=== PATIENT | female | born 1960 | race Caucasian/White ===

== ENCOUNTER 2020-06-12 16:36 | Emergency (ER) | payer MEDICAID, SELFPAY ==
[2020-06-12 16:37] VITALS: BP 162/92; PULSE 107; RESP 18; TEMP 36.4; BMI 48.7
--- NOTE | 2020-06-12 16:57 | CT_ITS ---
STUDY: CT BRAIN WITHOUT CONTRAST REASON FOR EXAM: Female, 59 years old. Fall. Pain. RADIATION DOSAGE (If Supplied By Facility): CTDIvol = ( 44.99 ) mGy, DLP = ( 829.85 ) mGycm TECHNIQUE: Transaxial CT imaging of the brain was performed without administration of intravenous contrast material. Individualized dose optimization techniques were used for this CT. COMPARISON: None. FINDINGS: There is no acute bleed or infarct. There are normal white matter tracts. The ventricles are normal in configuration. There is no hydrocephalus. The mastoid air cells are well aerated. There is no skull fracture. CT/Brain/Head without Contrast IMPRESSION: No acute intracranial abnormality. Electronically Signed: Fabrizio Deluca, at 17:32 EDT Tel , Service support ,
--- NOTE | 2020-06-12 16:57 | CT_ITS ---
STUDY: CT FACIAL BONES WITHOUT CONTRAST REASON FOR EXAM: Female, 59 years old. FALL/HIT FACE. Nose pain and bleeding. Hx of HLD, diabetes, asthma and uterine cancer RADIATION DOSAGE (If Supplied By Facility): CTDIvol = ( 29.38 ) mGy, DLP = ( 584.19 ) mGycm TECHNIQUE: The patient was scanned in a multi detector CT scanner. Sagittal and coronal images were reconstructed. Individualized dose optimization techniques were used for this CT. COMPARISON: None. FINDINGS: Normal soft tissue structures. Normal orbital mondragon and orbital contents. There is a minimally displaced fracture of the left nasal bone. The remainder the visualized facial bones are intact. Normal visualized paranasal sinuses. CT/Sinus/Facial Bone IMPRESSION: Minimally displaced fracture of the left nasal bone. No additional facial fractures. Clear sinuses. Electronically Signed: Fabrizio Deluca, at 17:25 EDT Tel , Service support ,
--- NOTE | 2020-06-12 16:57 | ED.VIS.GEN ---
History of Present Illness Chief Complaint: Nosebleed Narrative: Patient is a 59-year-old female who presents after a mechanical fall. She was cleaning. She lost her balance and fell forward striking her face on the floor. No loss of consciousness. No headache. No vomiting. She is not anticoagulated. She had epistaxis which is since resolved. She complains of nasal pain. She also sustained wounds on the inside of the left upper lip as well as above the left lip below the nose. She is uncertain of her last tetanus immunization. Past Medical History - Allergies and Home Meds Allergies/Adverse Reactions: Allergies No Known Allergies Allergy (Verified 04/30/16 11:33) Primary Care Physician: Angeline Jose MD [NON-STAFF] - Past Medical History: - - Diabetes and depression Smoking Status: Former smoker Review of Systems All systems negative except as indicated General: Denies: Fever Eyes: Denies: Visual changes - bilaterally ENT: Denies: Bilateral ear pain Cardiovascular: Denies: Chest pain Respiratory: Denies: Dyspnea Gastrointestinal: Denies: Abdominal pain Skin: Denies: Rash Neurological: Denies: Headache Hematologic: Denies: Easy bruising Allergy: Denies: Uticaria Physical Exam Vital Signs/Narrative: Vital Signs Temp Pulse Resp BP 06/12/20 16:37 97.6 F L 107 H 18 162/92 H Inital Vital Signs reviewed: Yes General: Well nourished Head: Normocephalic, - - No nasal septal hematoma, patient does have tenderness along the nasal bones no bony crepitus or deformity no active epistaxis she does have some dried blood at the left nare Eyes: EOMI ENT: Moist mucous membranes, - - Patient's left maxillary central incisor is severely decayed. Patient has a small puncture wound on the inside of the left lip at this position where she appears to have bitten it. Patient also has a superficial 1-1/2 cm laceration of the lip of the upper lip. This is superficial and cannot pull apart and maintains good alignment it is not contiguous with the laceration on the inside of the lip this is not a through and through laceration Neck: Supple Cardiovascular: Regular rate, Regular rhythm Respiratory: No distress, CTA bilaterally Abdomen: Soft Extremities: - - Patient has tenderness and ecchymosis of the anterior right knee over the patella Skin: Normal color Neurological: Alert, Oriented x3, - - GCS of 15 with no focal or lateralizing neurological deficits Psychological: Normal affect Diagnostic/Tx/Re-eval Impressions Brain CT 06/12/20 16:57 IMPRESSION: No acute intracranial abnormality. Electronically Signed: Fabrizio Deluca, at 17:32 EDT Tel , Service support , Facial/Sinus 06/12/20 16:57 IMPRESSION: Minimally displaced fracture of the left nasal bone. No additional facial fractures. Clear sinuses. Electronically Signed: Fabrizio Deluca, at 17:25 EDT Tel , Service support , 06/12/20 16:57 CT Brain [Brain/Head without Contrast] [CT] Stat Sinus/Facial Bone [CT] Stat - Medical Decision Making Patient's tetanus immunization was updated. Skin adhesive was applied to the laceration of the skin above the lip. Patient was advised on wound care and diet for care of the laceration on the inside of the lip. CT of the facial bones does show minimally displaced left nasal bone fracture. CT of the head is negative. Patient was referred to ENT for follow-up. She understands to return for new or worsening symptoms. She was discharged. ED Disposition - Plan for ED Patient: Disposition: Home or Assisted Living Diagnosis: Nasal fracture, Facial laceration Instructions: ED Laceration Facial Skin Glue, ED Nose Fracture with X-Ray Referrals: Angeline Jose MD [NON-STAFF] - Isac Carranza MD [STAFF PHYSICIAN] -
[2020-06-12] MEDS: Diphth,Pertuss(Acell),Tet Vac 0.5 ML Vial IM (17:17)
[2020-06-12 18:30] VITALS: BP 142/79; PULSE 84; RESP 22; O2SAT 98
--- NOTE | 2020-06-12 18:31 | ED.RN ---
THIS NURSE REVIEWED D/C INSTRUCTIONS WITH PT. PT VERBALIZED UNDERSTANDING OF INSTRUCTIONS. PT DENIES FURTHER NEEDS OR QUESTIONS AT THIS TIME. PT AMBULATES FROM ROOM ON OWN WITHOUT ASSISTANCE FROM STAFF
== END 2020-06-12 18:33 | disposition home or self-care (01) ==
PROVIDERS: Emergency Provider Emergency Medicine; PCP Family Medicine
DX: S02.2XXA Fracture of nasal bones, initial encounter for closed fracture (principal); S01.511A Laceration without foreign body of lip, initial encounter; E11.9 Type 2 diabetes mellitus without complications; Z23 Encounter for immunization; W18.30XA Fall on same level, unspecified, initial encounter; Y93.E9 Activity, other interior property and clothing maintenance; Y92.009 Unspecified place in unspecified non-institutional (private) residence as the place of occurrence of the external cause; Y99.8 Other external cause status
CPT/HCPCS: 70450; 70486; 90471; 90715; 99282

== ENCOUNTER 2020-08-28 09:05 | Emergency (ER) | payer MEDICAID, SELFPAY ==
[2020-08-28 09:05] VITALS: BP 161/94; PULSE 104; RESP 20; TEMP 36.4; O2SAT 98; BMI 46.6
--- NOTE | 2020-08-28 09:16 | ED.VIS.INJ ---
History of Present Illness Chief Complaint: Laceration Informant: Patient Onset: Hours Mechanism/Context: Blunt Injury, Fall Quality of Pain: - - Presently no. Location: Upper lip midline through the vermilion border Current Severity: Gone Maximum Severity: Mild Worsened by: Initial trauma Relieved by: Nothing Associated Symptoms: - - Patient is on no anticoagulants.. Negative for: Parasthesias, Weakness, Loss of function, Inability to ambulate, Loss of consciousness, Amnesia Narrative: Patient is 60-year-old woman who was putting on her mask as she was entering place of employment. She had a misstep and hit the curb. She fell forward onto her knees and then face. She sustained a laceration upper lip. She denies loss of conscious. Denies visual, ocular auditory symptoms. Denies neck pain. She denies paresthesia, anesthesia or motor weakness presently or at the time of impact. She denies cardiac respiratory symptoms. She has no other complaints. Tetanus was 1 month ago. Prior similar symptoms: Yes Recent Illness/Hospitalization: Yes - Past Medical History (1) Asthma Status: Chronic (2) DM2 (diabetes mellitus, type 2) Status: Chronic (3) Depression Status: Chronic (4) HLD (hyperlipidemia) Status: Chronic (5) Morbid obesity Status: Chronic (6) Uterine cancer Status: Chronic Past Medical History - Allergies and Home Meds Allergies/Adverse Reactions: Allergies No Known Allergies Allergy (Verified 08/28/20 09:07) Primary Care Physician: Oz De La Cruz MD [Primary Care Provider] - 5 Days for suture removal Prior records reviewed: Yes Surgical History: noncontributory Lives: Alone Smoking Status: Former smoker Drugs: None Review of Systems General: Denies: Chills, Fever, Malaise, Sweats Eyes: Denies: Visual changes - bilaterally, Blurred Vision - bilaterally, Diplopia ENT: Reports: - - No epistaxis. She believes she chipped her front upper incisor, tooth #8. Denies: Bilateral ear pain, Rhinorrhea, Sore throat Cardiovascular: Denies: Chest pain, Palpitations Respiratory: Denies: Dyspnea, Cough, Dyspnea on exertion Gastrointestinal: Denies: Abdominal pain, Nausea, Vomiting Musculoskeletal: Denies: Myalgias, Arthralgias, Neck pain, Back pain, Swelling, Extremity Pain Skin: Reports: Wounds. Denies: Rash Neurological: Denies: Headache, Weakness, Parasthesia, Numbness Hematologic: Denies: Easy bruising, Easy bleeding Allergy: Denies: Swelling of the mouth Physical Exam Vital Signs/Narrative: Vital Signs Temp Pulse Resp BP Pulse Ox 08/28/20 09:05 97.6 F L 104 H 20 H 161/94 H 98 Inital Vital Signs reviewed: Yes General: Well nourished, Well developed, Obese Head: Normocephalic, Trauma. Negative for: Tenderness Eyes: Perrl, EOMI, - - No subconjunctival hemorrhage noted.. Negative for: Pale conjunctiva, Scleral icterus ENT: No hemotympanum or drainage, No trauma, - - Laceration gaping involving the vermilion portion of the upper lip. Patient has very poor dentition with decay of essentially every tooth.. Negative for: Hemotympanum, Otorrhea, Nasal trauma, Nasal septal hematoma Neck: Nontender, Full ROM, - - C-spine was cleared per Nexus criteria.. Negative for: Spinal Tenderness, Paraspinal Tenderness Cardiovascular: Regular rate, Regular rhythm, No murmurs, Normal S1, Normal S2 Respiratory: No distress, CTA bilaterally, Chest nontender Abdomen: - - Pelvis is nontender. Neurological: Alert, Oriented x3, Cranial nerves II-XII grossly intact, Normal Strength, Normal Sensation, Normal DTR - There is no clonus or Babinski sign noted. Psychological: Normal affect - Glascow Coma Scale Eye Opening: Spontaneous Motor: Obeys Commands Verbal: Oriented Coma Scale Total: 15 Diagnostic/Tx/Re-eval - Medical Decision Making Patient has a facial lacerations which will require repair.. Please read procedure note. Imaging is not warranted of the head based on the [place] CT head rule. Per the Nexus criteria imaging of the neck is not indicated. Procedures - Lacerations No standard instances Length: 0.55 in Depth: Sub Q Shape: Linear Prep: oGod Laceration Repair: Lidocaine, Local Irrigated (ml): 25 Number of Sutures/[place]: 5 Suture Information: Ethilon, Simple, 6-0, - - The for stitch was placed to align the vermilion border. There was one stitch placed in the vermilion portion of the lip. ED Disposition - Plan for ED Patient: Disposition: Home or Assisted Living Diagnosis: Laceration of lip Instructions: ED Laceration Facial Sutr Tape Referrals: Oz De La Cruz MD [Primary Care Provider] - 5 Days for suture removal
== END 2020-08-28 10:52 | disposition home or self-care (01) ==
LOC: ED 09:30
PROVIDERS: Emergency Provider Emergency Medicine; PCP Family Medicine
DX: S01.511A Laceration without foreign body of lip, initial encounter (principal); J45.909 Unspecified asthma, uncomplicated; E11.9 Type 2 diabetes mellitus without complications; E78.5 Hyperlipidemia, unspecified; E66.01 Morbid (severe) obesity due to excess calories; Z87.891 Personal history of nicotine dependence; W26.8XXA Contact with other sharp object(s), not elsewhere classified, initial encounter; Y93.01 Activity, walking, marching and hiking; Y92.89 Other specified places as the place of occurrence of the external cause; Y99.8 Other external cause status
CPT/HCPCS: 12011; 99283

== ENCOUNTER → 2024-12-01 | Outpatient (CLI) | payer MEDICARE, SELFPAY | END | disposition home or self-care (01) | LOC: SL 19:53 | PROVIDERS: PCP Family Medicine; Referring Provider Nurse Practitioner Family; Visit Provider Nurse Practitioner Family | DX: G47.33 Obstructive sleep apnea (adult) (pediatric) (principal) | CPT/HCPCS: 95810 ==